=== PATIENT | male | born 1975 | race Caucasian/White ===

== ENCOUNTER 2019-06-29 14:18 | Emergency (ER) | payer MEDICAID ==
--- NOTE | 2019-06-29 15:05 | ED ---
Psychiatric Complaint - HPI Summary HPI Summary: This patient is a 44 year old M sent to ED from [facility] with a chief complaint of anger since this morning. Patient lives in [facility] because of a spinal injury (broke C3-C5). Patient woke up at 0700. He is usually woken up at 0500 by the nurses to take his medications at 0500. Thus, the patient had to wait until 1100 to take his medications. At 1100, patient reports that the nurse who was supposed to give him his meds was sitting in the nurses station , leisurely eating a bagel with cream cheese. This made the patient mad. Patient then made finger gun gestures towards the staff and made statements about jumping off a bridge. However, in the ED room, the patient denies SI and HI. Patient denies fever. The patient rates the pain 0/10 in severity. Symptoms aggravated by recent stress of trying to get the staff to give him his medications. Symptoms alleviated by nothing. Patient reports having extremity neuropathy. - History Of Current Complaint Chief Complaint: EDMentalHealth Time Seen by Provider: 06/29/19 14:41 Hx Obtained From: Patient, EMS Onset/Duration: Gradual Onset, Lasting Hours - Since this morning, Resolved Timing: Constant Severity Initially: Moderate Severity Currently: Mild Character: Angry, Frustrated Aggravating Factor(s): Recent Stress Alleviating Factor(s): Nothing Associated Signs And Symptoms: Positive: Negative - Fever Has Suicidal: Denies: Thoughts Has Homicidal: Denies: Thoughts - Allergies/Home Medications Allergies/Adverse Reactions: Allergies Allergy/AdvReac Type Severity Reaction Status Date / Time No Known Allergies Allergy Verified 12/01/18 12:52 Home Medications: Home Medications Calcium Carbonate CHEW TAB* [Tums*] 1,000 mg PO Q4H PRN 06/29/19 [History Confirmed 06/29/19] Cyclobenzaprine TAB* [Flexeril 10 MG TAB*] 10 mg PO Q8H PRN 06/29/19 [History Confirmed 06/29/19] Escitalopram * [Lexapro *] 20 mg PO DAILY 06/29/19 [History Confirmed 06/29/19] Gabapentin CAP(*) [Neurontin 300 CAP(*)] 600 mg PO TID 06/29/19 [History Confirmed 06/29/19] Hydrocodone/Acetamin 10/325(NF [[place] 10/325 (NF)] 1 tab PO Q6H 06/29/19 [ History Confirmed 06/29/19] Ibuprofen TAB* [Advil TAB*] 600 mg PO Q12H PRN 06/29/19 [History Confirmed 06/29] Lactulose* 15 ml PO BID 06/29/19 [History Confirmed 06/29/19] Melatonin (NF) 1 tab PO BEDTIME PRN 06/29/19 [History Confirmed 06/29/19] Muxoo-2-Sneg Ethyl Esters (NF) [Lovaza (NF)] 2 gm PO BID 06/29/19 [History Confirmed 06/29/19] Sennosides [Senna] 8.6 mg PO Q12H 06/29/19 [History Confirmed 06/29/19] Torsemide TAB* [Demadex*] 20 mg PO BID 06/29/19 [History Confirmed 06/29/19] PMH/Surg Hx/FS Hx/Imm Hx Endocrine/Hematology History: Denies: Hx Diabetes Cardiovascular History: Denies: Hx Hypertension, Hx Pacemaker/ICD History: Denies: Hx Renal Disease Musculoskeletal History: Reports: Other Musculoskeletal History - Broken spine at C3-C5 Sensory History: Denies: Hx Hearing Aid Neurological History: Reports: Hx Peripheral Neuropathy Psychiatric History: Denies: Hx Panic Disorder - Surgical History Surgery Procedure, Year, and Place: STENT IN LOWER BACK FROM STABB[facility] TO SCAN 1.[address] SAMAYOA. ROSY AND PLATE IN RIGHT LEG AND ANKLE. C3-4 FUSION Infectious Disease History: No Infectious Disease History: Denies: Traveled Outside the [place] in Last 30 Days - Family History Known Family History: Negative: Seizure Disorder - Social History Alcohol Use: None Hx Substance Use: No Substance Use Type: Reports: None Hx Tobacco Use: Yes Smoking Status (MU): Heavy Every Day Tobacco Smoker Review of Systems Negative: Fever Psychological: Other - Negative: SI/HI All Other Systems Reviewed And Are Negative: Yes Physical Exam - Summary Physical Exam Summary: Constitutional: Well-developed, Well-nourished, Alert. (-) Distressed Skin: Warm, Dry HENT: Normocephalic; Atraumatic Eyes: Conjunctiva normal Neck: Musculoskeletal ROM normal neck. (-) JVD, (-) Stridor, (-) Tracheal deviation Cardio: Rhythm regular, rate normal, Heart sounds normal; Intact distal pulses; The pedal pulses are 2+ and symmetric. Radial pulses are 2+ and symmetric. Pulmonary/Chest wall: Effort normal. (-) Respiratory distress, (-) Wheezes, (-) Rales Abd: Soft, (-) tenderness, (-) Distension, (-) Guarding, (-) Rebound Musculoskeletal: (-) Edema Neuro: Alert, Oriented x3 Psych: Mood and affect Normal Triage Information Reviewed: Yes Vital Signs On Initial Exam: Initial Vitals Temp Pulse Resp BP Pulse Ox 98.2 F 95 18 118/74 97 06/29/19 14:29 06/29/19 14:29 06/29/19 14:29 06/29/19 14:29 06/29/19 14:29 Vital Signs Reviewed: Yes Procedures - Sedation Patient Received Moderate/Deep Sedation with Procedure: No Diagnostics - Vital Signs Vital Signs Temp Pulse Resp BP Pulse Ox 06/29/19 14:29 98.2 F 95 18 118/74 97 - Laboratory Lab Statement: Any lab studies that have been ordered have been reviewed, and results considered in the medical decision making process. Course/Dx - Course Course Of Treatment: This patient is a 44 year old M sent to ED from [facility] with a chief complaint of anger since this morning. After evaluating the patient , I believe this was an overreaction and that the patient is not a harm to himself or others. I discussed patient case with Loulou Crowell, mmd unit teacher for [facility], completely agrees with my evaluation that the patient is not a danger to himself or others. She reports going through the motions as mandated by a situation similar to this. Therefore, I will discharge the patient back to [facility] with dx of emotional crisis. - Differential Dx/Clinical Impression Provider Diagnosis: Emotional crisis Discharge ED - Sign-Out/Discharge Documenting (check all that apply): Patient Departure - Discharge - Discharge Plan Condition: Stable Disposition: HOME Referrals: Matilde Guillen [Primary Care Provider] - 3 Days - Billing Disposition and Condition Condition: STABLE Disposition: Home - Attestation Statements Document Initiated by Scribe: Yes Documenting Scribe: Alejo Louis Provider For Whom Scribe is Documenting (Include Credential): Ronald Benites MD Scribe Attestation: I, Alejo Louis, scribed for Ronald Benites MD on 06/29/19 at 1907. Scribe Documentation Reviewed: Yes Provider Attestation: The documentation as recorded by the scribe, Alejo Louis accurately reflects the service I personally performed and the decisions made by me, Ronald Benites MD Status of Scribe Document: Viewed
[2019-06-29 16:25] VITALS: BP 142/98
== END 2019-06-29 16:24 | disposition home or self-care (01) ==
LOC: ED 14:18
DX: R45.7 State of emotional shock and stress, unspecified (principal); F17.200 Nicotine dependence, unspecified, uncomplicated; Z79.899 Other long term (current) drug therapy
CPT/HCPCS: 99282